=== PATIENT | male | born 1995 | race Two or more races ===

== ENCOUNTER 2019-02-19 20:01 | Emergency (ER) | payer MEDICAID ==
[~2019-02-19] VITALS: Ht 172.7 cm; Wt 95.3 kg
[2019-02-20] MEDS ORDERED: TETANUS-DIPTH-ACEL PERTUSSIS 0.5ML SYRG IM ONE
[2019-02-20] MEDS ORDERED: IBUPROFEN 800 MG TAB PO ONE
[2019-02-20] MEDS ORDERED: LIDOCAINE 1% HCL (LOCAL ANESTH.) INJ 20ML MDV IJ ONE
[2019-02-20 00:59] VITALS: BP 131/79
== END 2019-02-20 01:03 | disposition home or self-care (01) ==
LOC: ER 20:05
DX: S61.217A Laceration without foreign body of left little finger without damage to nail, initial encounter (principal); W25.XXXA Contact with sharp glass, initial encounter; Y93.G1 Activity, food preparation and clean up; Y92.098 Other place in other non-institutional residence as the place of occurrence of the external cause; Y99.8 Other external cause status
CPT/HCPCS: 12002; 29130; 73140; 90471; 90715; 99283; J2001

== ENCOUNTER 2021-01-07 19:33 | Emergency (ER) | payer MEDICAID ==
[~2021-01-07] VITALS: Ht 170.2 cm; Wt 95.3 kg
[2021-01-07 22:00] VITALS: BP 115/70
== END 2021-01-07 23:30 | disposition home or self-care (01) ==
LOC: ER 19:39
DX: K64.9 Unspecified hemorrhoids (principal); K59.00 Constipation, unspecified; E66.9 Obesity, unspecified; Z68.32 Body mass index [BMI] 32.0-32.9, adult

== ENCOUNTER 2024-04-22 20:08 | Emergency (ER) | payer MEDICAID ==
[~2024-04-22] VITALS: Ht 170.2 cm; Wt 98.6 kg
--- NOTE | 2024-04-22 20:44 | ED.PDOC ---
Eye-HPI HPI Comments The an otherwise healthy 28-year-old male who arrives the ED today for percy luation of left-sided lower dental pain that began two days ago and has worsened since. Patient complains of some left-sided lower facial swelling as well. Patient denies any fever, nausea or vomiting. Patient was hypertensive on arrival. Chief Complaint: Tooth Pain Time Seen by MD: 20:15 Primary Care Provider: [facility] Allergies: Coded Allergies: NO KNOWN ALLERGIES (Unverified , 05/12/16) Information Source: Patient, Friend Mode of Arrival: Ambulatory Timing: Days Duration: Since onset Prehospital treatment: None Quality: Pain Mouth: Left, Lower, Molar Onset: Spontaneous Past Medical History PAST MEDICAL HISTORY: HIV Surgical History: Denies all surgeries Family History Family History: Reviewed,noncontributory to illness, No family hx of Cancer, No family hx of DM, No family hx of Heart addie, No family hx of HTN, No family hx ofKidney addie, No family hx of Liver addie, No family hx of Lung addie, No family hx of Stroke Social History Smoker: Non-Smoker Alcohol: Denies ETOH Use Drugs: Denies Drug Use Lives In: Home Constitutional: denies: chills, diaphoresis, fatigue, fever, malaise, sweats, weakness, others EENTM: reports: others (Left-sided lower dental pain); denies: blurred vision, double vision, ear bleeding, ear discharge, ear drainage, ear pain, ear ringing, eye pain, eye redness, hearing loss, mouth pain, mouth swelling, nasal discharge, nose bleeding, nose congestion, nose pain, photophobia, tearing, throat pain, throat swelling, voice changes Respiratory: denies: cough, hemoptysis, orthopnea, SOB at rest, shortness of breath, SOB with excertion, stridor, wheezing, others Cardiovascular: denies: chest pain, dizzy spells, diaphoresis, Dyspnea on exertion, edema, irregular heart beat, left arm pain, lightheadedness, palpitations, PND, syncope, others Gastrointestinal: denies: abdomen distended, abdominal pain, blood streaked bowels, constipated, diarrhea, dysphagia, difficulty swallowing, hematemesis, melena, nausea, poor appetite, poor fluid intake, rectal bleeding, rectal pain, vomiting, others Genitourinary: denies: burning, dysuria, flank pain, frequency, hematuria, incontinence, penile discharge, penile sore, pain, testicle pain, testicle swelling, urgency, others Neurological: denies: dizziness, fainting, headache, left sided numbness, left sided weakness, numbness, paresthesia, pre-existing deficit, right sided numbness, right sided weakness, seizure, speech problems, tingling, tremors, weakness, others Musculoskeletal: denies: back pain, gout, joint pain, joint swelling, muscle pain, muscle stiffness, neck pain, others Integumetry: denies: bruises, change in color, change in hair/nails, dryness, laceration, lesions, lumps, rash, wounds, others Allergic/Immunocompromised: denies: Difficulty Healing, Frequent Infections, Hives, Itching, others Hematologic/Lymphatic: denies: anemia, blood clots, easy bleeding, easy bruising, swollen glands, others Endocrine: denies: excessive hunger, excessive sweating, excessive thirst, excessive urination, flushing, intolerance to cold, intolerance to heat, unexplained weight gain, unexplained weight loss, others Psychiatric: denies: anxiety, bipolar disorder, depression, hopeless, panic disorder, schizophrenia, sleepless, suicidal, others Physical Exam General Appearance: Moderate Distress (Due to left-sided lower dental pain.), Normal HEENT: Pharynx Normal, TMs Normal, Other (Patient displays a left-sided dental abscess at tooth 18. Erythema and edema noted in the gingiva. Swelling extends into the left lower face. No discharge noted. ) Neck: Full Range of Motion, Non-Tender, Normal, Normal Inspection Respiratory: Chest Non-Tender, Lungs Clear, No Accessory Muscle Use, No Respiratory Distress, Normal Breath Sounds Cardiovascular: No Edema, No JVD, No Murmur, No Gallop, Normal Peripheral Pulses, Regular Rate/Rhythm Breast Exam: Deferred Gastrointestinal: No Organomegaly, Non Tender, No Pulsatile Mass, Normal Bowel Sounds, Soft Genitalia: Deferred Pelvic: Deferred Rectal: Deferred Extremities: No calf tenderness, Normal capillary refill, Normal inspection, Normal range of motion, Non-tender, No pedal edema Neurologic: Alert, 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 Was a procedure done?: No EENT DIFF Eye: N/A Mouth: Other (Dental jay, dental abscess) X-Ray, Labs, Meds, VS Vital Signs Date Time Temp Pulse Resp B/P (MAP) Pulse Ox O2 Delivery O2 Flow Rate FiO2 04/22/24 20:16 99.0 66 18 147/97 (114) 98 Current Medications Medications (Trade) Dose Ordered Sig/Nargis Route Start Time Stop Time Status Last Admin Ketorolac Tromethamine (Toradol Injection) 30 mg ONCE ONCE IM 04/22/24 20:45 04/22/24 20:46 DC 04/22/24 20:57 Acetaminophen/ Hydrocodone Bitart ([place] 10/325MG Tab) 1 tab ONCE ONCE PO 04/22/24 20:45 04/22/24 20:46 DC 04/22/24 20:56 X-Ray, Labs, Meds, VS Comment Advised the patient that he was suffering a dental abscess due to the dental care. Patient was given his 1st dose of antibiotics tonight prior to discharge. Advised patient that he needs to follow up with his dentist for definitive evaluation and long-term management. Advise utilizing antibiotics as directed until completion. Time of 1ST Reevaluation: 20:43 Reevaluation 1ST: Improved Consultation: PCP, Other (Dentist) Patient Education/Counseling: Diagnosis, Treatment Family Education/Counseling: Diagnosis, Treatment Departure 1 Departure Time of Disposition: 20:43 Impression: Primary Impression: Dental abscess Disposition: 01 HOME / SELF CARE / HOMELESS Condition: Stable Additional Instructions: Advised patient utilize antibiotics as directed until completion as well as additional medication as needed for pain relief. Patient needs to follow up with Dentistry in the next few days for re-evaluation as well as long-term management. e-Prescriptions Hydrocodone-Acetaminophen (Hydrocodone Bitartrate/AC 5-325 mg) 1 Tab Tab 1 TAB PO Q6HP PRN, #15 TAB Prov: SUMMER CORDERO PAC 04/22/24 Ibuprofen Micronized (Ibuprofen) 800 Mg Tab 800 MG PO Q8HP PRN, #20 TAB Prov: SUMMER CORDERO PAC 04/22/24 Amoxicillin & Pot Clavulanate (AUGMENTIN TABLET) 875 Mg Tb 875 MG PO BID for 10 Days, #20 TAB Prov: SUMMER CORDERO PAC 04/22/24 Discharged With: Self, Friend Critical Care Note Critical Care Time?: No Stability Stability form required: No Heart Score Heart Score: Heart Score Response (Comments) Value History N/A 0 EKG N/A 0 Age N/A 0 Risk Factors N/A 0 Troponin N/A 0 Total 0 SUMMER CORDERO PAC Apr 22, 2024 20:44
[2024-04-22 20:45] VITALS: BP 147/97; PULSE 66; RESP 18; TEMP 99; O2SAT 98
[2024-04-22] MEDS: HYDROcodone-ACET 10/325MG TAB PO ONE (20:56)
[2024-04-22] MEDS: KETOROLAC TROMETH 60MG/2ML VIAL IM ONE (20:57)
[2024-04-22] MEDS ORDERED: AUG875T PO (21:00)
[2024-04-22] MEDS ORDERED: IBUP-1455 PO (21:00)
[2024-04-22] MEDS ORDERED: HYDR-4902 PO (21:00)
[2024-04-22] MEDS: AMOXICILLIN/CLAVUL 875 MG TAB PO ONE (21:26)
== END 2024-04-22 21:30 | disposition home or self-care (01) ==
LOC: ER 20:08
DX: K04.7 Periapical abscess without sinus (principal)
CPT/HCPCS: 96372; J1885